=== PATIENT | male | born 1990 | race African-American/Black ===

== ENCOUNTER 2017-02-25 19:02 | Emergency (ER) | payer SELFPAY ==
[~2017-02-25] VITALS: Ht 175.3 cm; Wt 66.0 kg
[2017-02-25 19:34] VITALS: BP 145/70
[2017-02-25] MEDS ORDERED: ACETAMINOPHEN 500MG TABLET PO ONE (20:45)
== END 2017-02-25 20:58 | disposition home or self-care (01) ==
LOC: ER 19:53
DX: S00.83XA Contusion of other part of head, initial encounter (principal); R51 Headache; Y08.09XA Assault by strike by other specified type of sport equipment, initial encounter; Y93.89 Activity, other specified; Y92.811 Bus as the place of occurrence of the external cause
CPT/HCPCS: 99282